=== PATIENT | female | born 1990 | race Caucasian/White ===

== ENCOUNTER 2019-10-01 13:55 | Outpatient (RCR) | payer SELFPAY | END 2019-10-08 00:01 | LOC: SOT 13:55 | PROVIDERS: Family Provider Family Medicine; Visit Provider Specialist | DX: Z47.89 Encounter for other orthopedic aftercare (principal) | CPT/HCPCS: 97035 ×2; 97110 ×2; 97140 ×2; 97165 ==

== ENCOUNTER 2019-10-09 06:00 | Outpatient (RCR) | payer OTHER, SELFPAY | END 2019-11-05 23:00 | disposition home or self-care (01) | LOC: SOT 06:00 | PROVIDERS: Family Provider Family Medicine; Visit Provider Family Medicine | DX: G56.02 Carpal tunnel syndrome, left upper limb (principal) | CPT/HCPCS: 97035; 97110; 97140 ==

== ENCOUNTER → 2020-08-04 08:52 | Outpatient (BNVA) | payer OTHER, SELFPAY | PROVIDERS: Family Provider Family Medicine; Visit Provider Family Medicine | DX: Z11.59 Encounter for screening for other viral diseases (principal) | CPT/HCPCS: 87635 ==

== ENCOUNTER → 2021-06-08 15:32 | Outpatient (BNVA) | payer OTHER, SELFPAY | PROVIDERS: Family Provider Family Medicine; PCP Family Medicine; Visit Provider Obstetrics & Gynecology | DX: R87.619 Unspecified abnormal cytological findings in specimens from cervix uteri (principal) | CPT/HCPCS: 81025; 88305 ==

== ENCOUNTER 2023-06-05 18:24 | Emergency (ER) | payer SELFPAY ==
[2023-06-05 19:02] VITALS: BP 118/82; PULSE 84; RESP 14; TEMP 36.7; O2SAT 98; BMI 35.4
--- NOTE | 2023-06-05 19:41 | USR_ITS ---
PROCEDURE INFORMATION: Exam: US Duplex Right Lower Extremity Veins, Limited Exam date and time: 06/05/2023 8:16 PM Age: 33 years old Clinical indication: Swelling (edema) of limb; Lower extremity, right; Additional info: Leg swelling TECHNIQUE: Imaging protocol: Real-time duplex ultrasound of the right extremity with 2-D cruz scale, color Doppler flow and spectral waveform analysis including responses to compression and other maneuvers (when performed) with image documentation. Limited exam was focused on the right lower extremity veins. COMPARISON: US OB >= 14 weeks fetus [id number] 07/25/2018 3:03 PM FINDINGS: Right deep veins: Unremarkable. The common femoral, femoral, proximal profunda femoral and popliteal veins are patent without thrombus. Normal Doppler waveforms. Normal compressibility and/or augmentation response. Superficial veins: Unremarkable. Saphenofemoral junction is patent without thrombus. Soft tissues: Unremarkable. US/[place] [id number] IMPRESSION: No evidence of deep vein thrombosis.
--- NOTE | 2023-06-05 20:45 | ED_ITS ---
HPI - Extremity Problem General: Chief complaint: Extremity Injury, Lower Stated complaint: possible blood clot in right leg Time Seen by Provider: 06/05/23 20:43 History of Present Illness: 33-year-old female comes in today with complaints of redness and swelling to the right lower leg. She was referred to the ER for concerns of possible DVT. Patient also has some patches of dry flaky skin to the feet and the lower extremities. Patient denies any other chronic medical problems. Associated symptoms: Deny chest pain Review of Systems General: Reports: 10 or more systems reviewed and unremarkable except in HPI and below Card: Denies: chest pain Resp: Denies: dyspnea Skin/Breast: Reports: erythema PFSH ED PFSH: Family History Mother Thyroid condition Grandmother Diabetes paternal Breast cancer maternal and paternal, age onset unknown Hypertension Denies family history of Colon cancer Ovarian cancer Clotting disorder Heart disease Hyperlipidemia Anesthesia complication Bleeding disorder Uterine cancer Stroke Social History Smoking and tobacco status: never smoked Alcohol intake: current Alcohol intake frequency: holidays/special occasions only Alcohol type: hard liquor Substance/Drug Use: never Physical Exam Const: COMMON NORMALS: alert HENMT: COMMON NORMALS: normocephalic HEAD & SCALP: normocephalic Neck/C-Spine: COMMON NORMALS: full ROM Resp: COMMON NORMALS: normal respiratory effort Cardio: COMMON NORMALS: regular rate and regular rhythm RATE: regular rate RHYTHM: regular rhythm GI: COMMON NORMALS: Soft to palpation PALPATION: Yes Soft to palpation : COMMON NORMALS: Yes no CVA tenderness BLADDER/KIDNEY EXAM: Yes no CVA tenderness Back/Pelvis: COMMON NORMALS: no CVA tenderness Extremity: COMMON NORMALS: full ROM RIGHT LOWER EXTREMITY: Yes lower leg (Posterior redness and tenderness to the leg) Neuro: SENSORIUM/ORIENTATION: Yes alert Skin: RASHES: rashes noted (Flaky, patchy dry rash lower extremities and soles ) Course Vital Signs: Vital signs: Vital Signs Temperature 98.1 F 06/05/23 19:02 Pulse Rate 84 06/05/23 19:02 Respiratory Rate 14 06/05/23 19:02 Blood Pressure 118/82 06/05/23 19:02 Pulse Oximetry 98 08/28/23 19:02 Oxygen Delivery Me thod Room Air 06/05/23 19:02 MDM - Extremity (Nontraumatic) Medical Decision Making Patient comes in today for complaints of redness since tenderness to the right posterior calf. On exam we note the area of redness and tenderness. Patient also has some patches of dry flaky skin to the lower extremities that involves the soles of her feet and the left knee and the anterior aspect of the right lower leg. Differential diagnosis includes cellulitis, DVT, psoriasis, eczema. Ultrasound for DVT was negative. Believe patient probably has a cellulitis of her lower extremity secondary to her chronic rash. Discussed possibility of psoriasis versus eczema and recommend follow-up with patient service technician pst. Patient should talk to her primary care for this follow-up appointment. Patient reported understanding and agreed to plan. Patient was given 1 g of Rocephin for the cellulitis will be continued on Augmentin 875 twice a day for 10 days. Lab Data Radiology Impressions Venous Duplex 06/05/23 19:41 IMPRESSION: No evidence of deep vein thrombosis. Discharge Plan Discharge Patient Disposition: Home Clinical Impression: Cellulitis Qualifiers: Site of cellulitis: extremity Site of cellulitis of extremity: lower extremity Laterality: right Qualified Code(s): L03.115 - Cellulitis of right lower limb Condition: Stable Prescriptions: New amoxicillin-pot clavulanate 875-125 mg tablet 1 tab PO BID Qty: 20 0RF No Action albuterol sulfate [ProAir HFA] 90 mcg/actuation HFA aerosol inhaler 2 inh INHALATION Q4H PRN (Reason: shortness of breath or wheezing) Qty: 8.5 0 RF doxycycline hyclate 100 mg tablet 100 mg PO BID 5 Days Qty: 10 0RF Discharge Orders: Discharge ED (Routine); Ordered 06/05/23 Ordered By: Daniel Denson Referrals: Jreod Mckeon MD [Primary Care Provider] - Discharge Diet: Usual diet Discharge Activity: Increase activity as tolerated Patient Instructions: Cellulitis (ED) Activity Restrictions/Additional Instructions: Take antibiotic as directed. Drink plenty of water and fluids. Use acetaminophen and/or ibuprofen to help with pain. Increase activity as tolerated. Elevate extremity is much as possible. Follow-up with primary care as needed. Return to ED for worsening symptoms such as increasing redness and swelling, high fever, inability to hold fluids down. Coding Level of Care Code ED [employer] Specialist for Geovani Marin
[2023-06-05] MEDS: cefTRIAXone 1,000 MG in water for injection-sterile 2.1 ML 1 MG IM (21:09)
== END 2023-06-05 21:16 | disposition home or self-care (01) ==
PROVIDERS: Emergency Provider Nurse Practitioner Family; PCP Family Medicine
DX: L03.115 Cellulitis of right lower limb (principal)
CPT/HCPCS: 93971; 96372; 99284; J0696

== ENCOUNTER → 2024-08-26 09:24 | Outpatient (BNVA) | payer OTHER, SELFPAY | PROVIDERS: PCP Family Medicine; Visit Provider Nurse Practitioner | DX: R10.9 Unspecified abdominal pain (principal) | CPT/HCPCS: 81000 ==

== ENCOUNTER → 2025-04-17 10:40 | Outpatient (BNVA) | payer OTHER, SELFPAY | PROVIDERS: PCP Family Medicine; Visit Provider Family Medicine | DX: Z00.00 Encounter for general adult medical examination without abnormal findings (principal); R53.81 Other malaise; R53.83 Other fatigue; Z87.42 Personal history of other diseases of the female genital tract; Z13.1 Encounter for screening for diabetes mellitus; Z51.81 Encounter for therapeutic drug level monitoring | CPT/HCPCS: 80053; 83036; 84443; 85025; 87624 ==